=== PATIENT | male | born 1970 | race Two or more races ===

== ENCOUNTER → 2017-06-09 16:10 | Emergency (ER) | payer MEDICAID | END | disposition left against medical advice (07) | LOC: C.ER 16:10 | DX: Z02.89 Encounter for other administrative examinations (principal); R07.0 Pain in throat ==

== ENCOUNTER 2017-07-01 07:46 | Inpatient (IN) | payer MEDICAID ==
[2017-07-01] MEDS ORDERED: Sodium Chloride 0.9% 1,000 ML IV ONE (08:11)
[2017-07-01] MEDS ORDERED: Piperacillin/Tazobact 3.375 gm 100 ML IV STA (08:12)
[2017-07-01] MEDS ORDERED: Vancomycin 1 GM 1 GM/250 ML BAG IV STA (08:12)
[2017-07-01] MEDS ORDERED: Piperacillin/Tazobact 3.375 gm 100 ML IVPB ONE ×2 (08:32→15:13)
[2017-07-01] MEDS ORDERED: Sodium Chloride 0.9% 1,000 ML ONE (08:33)
[2017-07-01] MEDS ORDERED: Vancomycin 1 gm/NS 200 ml 1 GM/200 ML BAG IVPB STA (08:36)
[2017-07-01 08:37] LABS: BASO # 0.1 K/uL (0.0-0.2); BASO % 0.9 % (0.0-2.0); EOS # 0.2 K/uL (0.0-0.7); EOS % 1.9 % (0.0-4.0); HEMOGLOBIN 12.9 g/dL (12.0-18.0); LYMPH # 2.1 K/uL (1.0-4.3); LYMPH % 22.1 % (20.0-40.0); MEAN CELL VOLUME 91.2 fL (80.0-94.0); MEAN CORPUSCULAR HEMOGLOBIN 31.1 pg (27.0-31.0); MEAN CORPUSCULAR HGB CONC 34.1 g/dL (33.0-37.0); MEAN PLATELET VOLUME 7.2 fL (7.2-11.7); MONO # 0.5 K/uL (0.0-0.8); MONO % 5.3 % (0.0-10.0); NEUT # 6.5 K/uL (1.8-7.0); NEUT % 69.8 % (50.0-75.0); RBC 4.16 Mil/uL (4.40-5.90); RED CELL DISTRIBUTION WIDTH 15.3 % (11.5-14.5); WHITE BLOOD COUNT 9.3 K/uL (4.8-10.8)
[2017-07-01 08:40] LABS: INR 1.2; PROTHROMBIN TIME 13.8 SECONDS (9.7-12.2)
[2017-07-01 08:42] LABS: URINE BILIRUBIN NEGATIVE (NEGATIVE); URINE BLOOD NEGATIVE (NEGATIVE); URINE CLARITY Clear (Clear); URINE COLOR Amber (YELLOW); URINE GLUCOSE (UA) NORMAL (Normal); URINE LEUKOCYTE ESTERASE NEG Leu/uL (Negative); URINE PROTEIN NEGATIVE (NEGATIVE); URINE UROBILINOGEN NORMAL mg/dL (0.2-1.0)
[2017-07-01 08:50] LABS: ALB/GLOB RATIO 0.9 (1.0-2.1); ALBUMIN 3.8 g/dL (3.5-5.0); ALT/SGPT 36 U/L (21-72); AST/SGOT 49 U/L (17-59); BLOOD UREA NITROGEN 15 mg/dL (9-20); CALCIUM 8.7 mg/dl (8.6-10.4); GFR AFRICAN-AMERICAN > 60; GFR NON-AFRICAN AMERICAN > 60
--- NOTE | 2017-07-01 08:51 | RAD ---
HISTORY: SOB COMPARISON: Chest x-ray performed 07/01/17 TECHNIQUE: Chest, one view. FINDINGS: LUNGS: Patchy right lower lobe opacities may reflect pneumonia or atelectasis. Please note that chest x-ray has limited sensitivity for the detection of pulmonary masses. PLEURA: No significant pleural effusion identified. No definite pneumothorax . CARDIOVASCULAR: Heart size appears top normal. OSSEOUS STRUCTURES: No acute osseous abnormality identified. VISUALIZED UPPER ABDOMEN: Unremarkable. OTHER FINDINGS: None. IMPRESSION: Patchy right lower lobe opacities may reflect pneumonia or atelectasis. Correlate clinically.
[2017-07-01 08:56] LABS: BARBITURATES, UR NEGATIVE (NEGATIVE); BENZODIAZEPINES, UR NEGATIVE (NEGATIVE); PHENCYCLIDINE, UR NEGATIVE (NEGATIVE)
[2017-07-01] MEDS ORDERED: Iodixanol 320 mg/ml 150 ml Bottle IV ONE (08:56)
[2017-07-01 09:14] LABS: OPIATES, UR POSITIVE (NEGATIVE)
--- NOTE | 2017-07-01 09:15 | C.PDOC ---
History Of Present Illness Patient is a 46 y/o male who presents to the ED with a complaint of painful swelling to the right upper arm for over 1 week. Admits to being an IV drug abuser; patient is right-handed but shoots left handed into the right upper arm. Patient uses as many bags of heroin as possible, admitting last use was this morning. Admits to living in a homeless fdc. No other physical complaints at this time. Time Seen by Provider: 07/01/17 08:05 Chief Complaint (Nursing): Abnormal Skin Integrity History Per: Patient History/Exam Limitations: no limitations Onset/Duration Of Symptoms: Days (over 1 week) Current Symptoms Are (Timing): Still Present Quality Of Symptoms: Painful, Swollen Recent travel outside of the [place]: No Past Medical History Reviewed: Historical Data, Nursing Documentation, Vital Signs Vital Signs: Last Vital Signs Temp 98.4 F 07/01/17 08:01 Pulse 72 07/01/17 08:01 Resp 20 07/01/17 08:01 BP 114/69 07/01/17 08:01 Pulse Ox 99 07/01/17 11:01 - Medical History PMH: Hypothyroidism Surgical History: No Surg Hx Family History: States: No Known Family Hx - Social History Hx Tobacco Use: Yes (heavy smoker) Hx Alcohol Use: Yes Hx Substance Use: Yes Review Of Systems Musculoskeletal: Positive for: Arm Pain (painful swelling to right upper arm) Physical Exam - Physical Exam Appears: Other (disheveled, foul-smelling) Skin: Warm, Dry, Other (nonerythematous 5x5cm fluctuance to right upper arm to bicep area extending down to elbow) Head: Atraumatic, Normacephalic Eye(s): bilateral: Other (pinpoint pupils) Oral Mucosa: Moist Cardiovascular: Rhythm Regular Respiratory: Normal Breath Sounds, No Rales, No Rhonchi, No Wheezing Gastrointestinal/Abdominal: Soft, No Tenderness Pulses: Right Radial: Normal Neurological/Psych: Oriented x3, Normal Speech, Normal Cognition, Normal Motor ( good strength to right arm) ED Course And Treatment - Laboratory Results Result Diagrams: 07/01/17 08:27 07/01/17 08:27 Lab Interpretation: Normal ECG: Interpreted By Me ECG Rhythm: Sinus Bradycardia ECG Interpretation: Normal Rate From EC (baseline john from prior evals) O2 Sat by Pulse Oximetry: 99 Pulse Ox Interpretation: Normal - Radiology CXR: Interpreted by Me, Viewed By Me CXR Interpretation: Yes: Other (IMPRESSION: Patchy right lower lobe opacities may reflect pneumonia or atelectasis. Correlate clinically.) - CT Scan/US Right upper arm Other Rad Studies (CT/US): Interpreted By Me, Read By Radiologist CT/US Interpretation: . IMPRESSION: 1. Abscess noted along the anterior aspect of the right mid arm. Adjacent inflammatory change within the superficial soft tissues and enlargement of the biceps muscle indicates the presence of cellulitis and myositis. Ultrasound could be helpful in guiding abscess drainage if this is clinically relevant Reevaluation Time: 10:58 Reassessment Condition: Improved - Physician Consult Information Outcome Of Conversation: 0915: d/w Surgery- Dr. [facility], will consult. 1100: d/w Dr. Joaquín Jamil, Medicine Headrig Sawyer- ok to admit. Medical Decision Making Medical Decision Making: Blood work and CXR ordered. Toradol, vancomycin, and IV fluids administered. abscess, cellulitis, myositis @ site of IVDA/heroine Disposition Doctor Will See Patient In The: Hospital Counseled Patient/Family Regarding: Studies Performed, Diagnosis - Disposition Disposition: HOSPITALIZED Disposition Time: 11:00 Condition: GOOD Forms: [facility] ([place]) - Clinical Impression Clinical Impression: Abscess, Heroin abuse, Intravenous drug abuse, continuous - Scribe Statement The provider has reviewed the documentation as recorded by the Scribe Mandy Whitman All medical record entries made by the Scribe were at my direction and personally dictated by me. I have reviewed the chart and agree that the record accurately reflects my personal performance of the history, physical exam, medical decision making, and the department course for this patient. I have also personally directed, reviewed, and agree with the discharge instructions and disposition.
--- NOTE | 2017-07-01 10:48 | CT ---
EXAM: CT Right Upper Extremity With Intravenous Contrast EXAM DATE/TIME: Exam ordered 07/01/2017 8:16 AM CLINICAL HISTORY: 46 years old, male; Signs and symptoms; Swelling; Shoulder and upper limb; Right; Patient HX: Ivda; Additional info: R upper arm abscess (ivda). Best possible patient position. Unable to raise arm over head and keep in fov. TECHNIQUE: Axial computed tomography images of the right upper extremity with intravenous contrast. All CT scans at this facility use one or more dose reduction techniques, viz.: automated exposure control; ma/kV adjustment per patient size (including targeted exams where dose is matched to indication; i.e. head); or iterative reconstruction technique. Coronal and sagittal reformatted images were created and reviewed. CONTRAST: 150 mL of VISIPAQUE administered intravenously. COMPARISON: No relevant prior studies available. FINDINGS: Bones/joints: No osseous abnormalities are noted to suggest osteomyelitis of the humerus. No acute fracture. No dislocation. Soft tissues: There is edema noted within the subcutaneous fat of the right arm anteriorly. There is an abscess noted at approximately the level of the mid arm anteriorly. The abscess measures approximately 2.2 x 2.5 by 4.8 cm. There is edema noted of the underlying biceps muscle. Hypoventilatory changes noted in the dependent portion of the right lung. Lungs: Discoid atelectasis or scar is noted in the right middle lobe. IMPRESSION: 1. Abscess noted along the anterior aspect of the right mid arm. Adjacent inflammatory change within the superficial soft tissues and enlargement of the biceps muscle indicates the presence of cellulitis and myositis. Ultrasound could be helpful in guiding abscess drainage if this is clinically relevant Images were attached to this report and are available at [email or web address]
--- NOTE | 2017-07-01 14:56 | CP.PCM.CON ---
<Vincent Salcido - Last Filed: 07/01/17 15:06> History of Present Illness - History of Present Illness History of Present Illness: Surgery consult note. Dr. Friedman 46yo M with PMHx of IVDA and Hypothyroidism here for evaluation of right upper arm pain and swelling. Patient reports pain to the area for the past 1 week and progressively getting worse. Pain described as sharp, associated with redness and swelling. Denies any fevers or chills. Reports that he uses IV heroin and last injected at the right upper arm biceps area 3 days ago. He denies any chest pain or shortness of breath. No N/V/D. No abdominal pain. No urinary complaints. No sick contacts. PMHx: IVDA, Hypothyroidism PSHx: Denies Social Hx: Lives in a homeless prison. Admits to heavy tobacco use. Admits to ETOH use, does not quantify. Admits to IV heroin use. NKDA Review of Systems - Review of Systems All systems: reviewed and no additional remarkable complaints except - Constitutional Constitutional: absent: Chills, Fever - Cardiovascular Cardiovascular: absent: Chest Pain, Dyspnea - Respiratory Respiratory: absent: Dyspnea - Gastrointestinal Gastrointestinal: absent: Abdominal Pain, Diarrhea, Nausea, Vomiting - Genitourinary Genitourinary: absent: Dysuria - Musculoskeletal Additional comments: Right upper arm pain and swelling - Integumentary Integumentary: Swelling - Neurological Neurological: absent: Headaches Past Patient History - Past Medical History & Family History Past Medical History?: Yes Past Family History: Reviewed and not pertinent - Past Social History Smoking Status: Heavy Smoker > 10 Cigarettes Daily Alcohol: Other (Admits to ETOH use, does not quantify) Drugs: Other (Admits to IV heroin abuse) Home Situation {Lives}: Homeless (lives in homeless prison) - ENDOCRINE/METABOLIC Hx Hypothyroidism: Yes - PSYCHIATRIC Hx Substance Use: Yes - SURGICAL HISTORY Hx Surgeries: Yes Other/Comment: Right ankle - ANESTHESIA Hx Anesthesia: Yes Hx Anesthesia Reactions: No Meds Allergies/Adverse Reactions: Allergies Allergy/AdvReac Type Severity Reaction Status Date / Time No Known Allergies Allergy Verified 07/01/17 08:11 Physical Exam - Constitutional Appears: Non-toxic, No Acute Distress, Older Than Stated Age - Head Exam Head Exam: ATRAUMATIC, NORMAL INSPECTION, NORMOCEPHALIC - Eye Exam Eye Exam: EOMI, Normal appearance - ENT Exam ENT Exam: Mucous Membranes Moist - Respiratory Exam Respiratory Exam: NORMAL BREATHING PATTERN. absent: Accessory Muscle Use, Respiratory Distress - Cardiovascular Exam Cardiovascular Exam: RRR. absent: JVD - GI/Abdominal Exam GI & Abdominal Exam: Soft. absent: Distended, Firm, Guarding, Rigid, Tenderness - Extremities Exam Extremities exam: Positive for: full ROM. Negative for: calf tenderness Additional comments: right upper extremity swelling, erythema and induration at the biceps. No active drainage. Full range of motion noted. Tenderness to palpation of the right upper arm biceps area. Bilateral upper extremity track ulrich noted. - Neurological Exam Neurological exam: Alert, Oriented x3 - Psychiatric Exam Psychiatric exam: Normal Affect, Normal Mood Results - Vital Signs Recent Vital Signs: Last Vital Signs Temp 98.5 F 07/01/17 13:25 Pulse 68 07/01/17 13:25 Resp 18 07/01/17 13:25 BP 118/70 07/01/17 13:25 Pulse Ox 100 07/01/17 13:25 - Labs Result Diagrams: 07/01/17 08:27 07/01/17 08:27 Labs: Laboratory Results - last 24 hr 07/01/17 07/01/17 07/01/17 08:27 08:27 08:27 WBC 9.3 RBC 4.16 L Hgb 12.9 Hct 37.9 MCV 91.2 MCH 31.1 H MCHC 34.1 RDW 15.3 H Plt Count 300 MPV 7.2 Neut % (Auto) 69.8 Lymph % (Auto) 22.1 [place] % (Auto) 5.3 Eos % (Auto) 1.9 Baso % (Auto) 0.9 Neut # (Auto) 6.5 Lymph # (Auto) 2.1 [place] # (Auto) 0.5 Eos # (Auto) 0.2 Baso # (Auto) 0.1 PT 13.8 H INR 1.2 APTT 26 Sodium Potassium Chloride Carbon Dioxide Anion Gap BUN Creatinine Est GFR ( Amer) Est GFR (Non-Af Amer) Random Glucose Calcium Total Bilirubin AST ALT Alkaline Phosphatase Troponin I Total Protein Albumin Globulin Albumin/Globulin Ratio Urine Color [place] Urine Clarity Clear Urine pH 5.0 Ur Specific [place] 1.023 Urine Protein Negative Urine Glucose (UA) Normal Urine Ketones Negative Urine Blood Negative Urine Nitrate Negative Urine Bilirubin Negative Urine Urobilinogen Normal Ur Leukocyte Esterase Neg Urine WBC (Auto) < 1 Urine RBC (Auto) 1 Urine Opiates Screen Urine Methadone Screen Ur Barbiturates Screen Ur Phencyclidine Scrn Ur Amphetamines Screen U Benzodiazepines Scrn U Oth Cocaine Metabols U Cannabinoids Screen Alcohol, Quantitative 07/01/17 07/01/17 08:27 08:27 WBC RBC Hgb Hct MCV MCH MCHC RDW Plt Count MPV Neut % (Auto) Lymph % (Auto) [place] % (Auto) Eos % (Auto) Baso % (Auto) Neut # (Auto) Lymph # (Auto) [place] # (Auto) Eos # (Auto) Baso # (Auto) PT INR APTT Sodium 139 Potassium 4.1 Chloride 99 Carbon Dioxide 27 Anion Gap 18 BUN 15 Creatinine 1.0 Est GFR ( Amer) > 60 Est GFR (Non-Af Amer) > 60 Random Glucose 129 H Calcium 8.7 Total Bilirubin 0.6 AST 49 ALT 36 Alkaline Phosphatase 69 Troponin I < 0.0120 Total Protein 7.8 Albumin 3.8 Globulin 4.0 H Albumin/Globulin Ratio 0.9 L Urine Color Urine Clarity Urine pH Ur Specific [place] Urine Protein Urine Glucose (UA) Urine Ketones Urine Blood Urine Nitrate Urine Bilirubin Urine Urobilinogen Ur Leukocyte Esterase Urine WBC (Auto) Urine RBC (Auto) Urine Opiates Screen Positive H Urine Methadone Screen Negative Ur Barbiturates Screen Negative Ur Phencyclidine Scrn Negative Ur Amphetamines Screen Negative U Benzodiazepines Scrn Negative U Oth Cocaine Metabols Negative U Cannabinoids Screen Negative Alcohol, Quantitative < 10 Assessment & Plan - Assessment and Plan (Free Text) Assessment: 46yo M with hx of IVDA here for right upper arm abscess - CT upper extremity noted. Possible involvement into biceps muscle belly. Fluid collection approximately 2.5cm x 5cm Plan: - Warm compresses to the affected area - IV abx as per ID - Possible OR Monday for I&D - NPO past mn Monday - Continue diet as tolerated in the meantime Further recs as per Dr. Idalia Salcido PGY1 surgery pager: [phone] <Frankie Friedman - Last Filed: 07/05/17 20:21> Results - Vital Signs Recent Vital Signs: Last Vital Signs Temp 97.8 F 07/03/17 16:00 Pulse 62 07/03/17 16:00 Resp 20 07/03/17 16:00 BP 95/58 L 07/03/17 16:00 Pulse Ox 98 07/03/17 16:00 - Labs Result Diagrams: 07/01/17 08:27 07/01/17 08:27 Attending/Attestation - Attestation I have personally seen and examined this patient.: Yes I have fully participated in the care of the patient.: Yes I have reviewed all pertinent clinical information: Yes Notes (Text): Pt was seen and examined at bedside Agree with above note and assessment Pt with IV drug abuse and Right upper arm pain Right arm tenderness with cellulitis Labs and radiology reviewed Ass: R arm cellulitis with possible abscess Plan: Conservative management at present NPO, IVF IV antibiotics ID consult Arm elevation Plan d.w pt in detail Risk and benefit explained in detail.
[2017-07-01] MEDS: Piperacillin/Tazobact 3.375 GM in Sodium Chloride 100 ML IVPB SCH ×2 (15:08→22:00)
--- NOTE | 2017-07-01 20:41 | CP.PCM.HP ---
Present on Admission - Present on Admission Any Indicators Present on Admission: No Past Patient History - Past Medical History & Family History Past Medical History?: Yes Past Family History: Reviewed and not pertinent - Past Social History Smoking Status: Heavy Smoker > 10 Cigarettes Daily Alcohol: Other (Admits to ETOH use, does not quantify) Drugs: Other (Admits to IV heroin abuse) Home Situation {Lives}: Homeless (lives in homeless senior care) - ENDOCRINE/METABOLIC Hx Hypothyroidism: Yes - PSYCHIATRIC Hx Substance Use: Yes - SURGICAL HISTORY Hx Surgeries: Yes Other/Comment: Right ankle - ANESTHESIA Hx Anesthesia: Yes Hx Anesthesia Reactions: No Meds Allergies/Adverse Reactions: Allergies Allergy/AdvReac Type Severity Reaction Status Date / Time No Known Allergies Allergy Verified 07/01/17 08:11 Results - Vital Signs Recent Vital Signs: Last Vital Signs Temp 98.1 F 07/01/17 18:36 Pulse 56 L 07/01/17 18:36 Resp 16 07/01/17 18:36 BP 134/72 07/01/17 18:36 Pulse Ox 98 07/01/17 18:36 - Labs Result Diagrams: 07/01/17 08:27 07/01/17 08:27 Labs: Laboratory Results - last 24 hr 07/01/17 07/01/17 07/01/17 08:27 08:27 08:27 WBC 9.3 RBC 4.16 L Hgb 12.9 Hct 37.9 MCV 91.2 MCH 31.1 H MCHC 34.1 RDW 15.3 H Plt Count 300 MPV 7.2 Neut % (Auto) 69.8 Lymph % (Auto) 22.1 [place] % (Auto) 5.3 Eos % (Auto) 1.9 Baso % (Auto) 0.9 Neut # (Auto) 6.5 Lymph # (Auto) 2.1 [place] # (Auto) 0.5 Eos # (Auto) 0.2 Baso # (Auto) 0.1 PT 13.8 H INR 1.2 APTT 26 Sodium Potassium Chloride Carbon Dioxide Anion Gap BUN Creatinine Est GFR ( Amer) Est GFR (Non-Af Amer) Random Glucose Calcium Total Bilirubin AST ALT Alkaline Phosphatase Troponin I Total Protein Albumin Globulin Albumin/Globulin Ratio Urine Color [place] Urine Clarity Clear Urine pH 5.0 Ur Specific [place] 1.023 Urine Protein Negative Urine Glucose (UA) Normal Urine Ketones Negative Urine Blood Negative Urine Nitrate Negative Urine Bilirubin Negative Urine Urobilinogen Normal Ur Leukocyte Esterase Neg Urine WBC (Auto) < 1 Urine RBC (Auto) 1 Urine Opiates Screen Urine Methadone Screen Ur Barbiturates Screen Ur Phencyclidine Scrn Ur Amphetamines Screen U Benzodiazepines Scrn U Oth Cocaine Metabols U Cannabinoids Screen Alcohol, Quantitative 07/01/17 07/01/17 08:27 08:27 WBC RBC Hgb Hct MCV MCH MCHC RDW Plt Count MPV Neut % (Auto) Lymph % (Auto) [place] % (Auto) Eos % (Auto) Baso % (Auto) Neut # (Auto) Lymph # (Auto) [place] # (Auto) Eos # (Auto) Baso # (Auto) PT INR APTT Sodium 139 Potassium 4.1 Chloride 99 Carbon Dioxide 27 Anion Gap 18 BUN 15 Creatinine 1.0 Est GFR ( Amer) > 60 Est GFR (Non-Af Amer) > 60 Random Glucose 129 H Calcium 8.7 Total Bilirubin 0.6 AST 49 ALT 36 Alkaline Phosphatase 69 Troponin I < 0.0120 Total Protein 7.8 Albumin 3.8 Globulin 4.0 H Albumin/Globulin Ratio 0.9 L Urine Color Urine Clarity Urine pH Ur Specific [place] Urine Protein Urine Glucose (UA) Urine Ketones Urine Blood Urine Nitrate Urine Bilirubin Urine Urobilinogen Ur Leukocyte Esterase Urine WBC (Auto) Urine RBC (Auto) Urine Opiates Screen Positive H Urine Methadone Screen Negative Ur Barbiturates Screen Negative Ur Phencyclidine Scrn Negative Ur Amphetamines Screen Negative U Benzodiazepines Scrn Negative U Oth Cocaine Metabols Negative U Cannabinoids Screen Negative Alcohol, Quantitative < 10 Assessment & Plan - Assessment and Plan (Free Text) Plan: protonix Lovenox ID consult IV Zosyn IV fluid IV Toradol IV vancomycin Surgical consult Medication as ordered
[2017-07-01] MEDS ORDERED: Pneumococcal 23-Valent Vaccine IM ONE (22:28)
[2017-07-01] MEDS ORDERED: Influenza Vaccine 60 mcg/0.5 mL SYR (4YR UP) IM ONE (22:29)
[2017-07-02] MEDS: Piperacillin/Tazobact 3.375 GM in Sodium Chloride 100 ML IVPB SCH ×4 (03:17→20:18)
--- NOTE | 2017-07-02 09:02 | CP.PCM.PN ---
<Coleman Salcidonay - Last Filed: 07/02/17 08:59> Subjective - Date & Time of Evaluation Date of Evaluation: 07/02/17 Time of Evaluation: 07:00 - Subjective Subjective: Surgery progress note. Dr. Friedman Pt seen and examined at bedside. No acute events overnight. No N/V/D. No new complaints. No F/C. Pain tolerable. Objective - Vital Signs/Intake and Output Vital Signs (last 24 hours): Temp Pulse Resp BP Pulse Ox 98.1 F 60 20 109/64 98 07/02/17 08:34 07/02/17 08:34 07/02/17 08:34 07/02/17 08:34 07/02/17 08:34 Intake and Output: 07/02/17 07/02/17 06:59 18:59 Intake Total Balance - Medications Medications: Current Medications Acetaminophen (Tylenol 325mg Tab) 650 mg PO Q6 PRN PRN Reason: Pain, Mild (1-3) Last Admin: 07/02/17 01:08 Dose: 650 mg Enoxaparin Sodium (Lovenox) 40 mg SC DAILY CHRISTOPHER Piperacillin Sod/Tazobactam (Sod 3.375 gm/ Sodium Chloride) 100 mls @ 200 mls/ hr IVPB Q6H CHRISTOPHER PRN Reason: Protocol Last Admin: 07/02/17 03:17 Dose: 200 mls/hr Vancomycin HCl 1,000 mg/ (Sodium Chloride) 200 mls @ 166.6 mls/hr IVPB Q12H CHRISTOPHER PRN Reason: Protocol Last Admin: 07/01/17 22:47 Dose: 166.6 mls/hr Ketorolac Tromethamine (Toradol) 15 mg IVP Q8 PRN PRN Reason: Pain, severe (8-10) Last Admin: 07/01/17 20:07 Dose: 15 mg Levothyroxine Sodium (Synthroid) 150 mcg PO DAILY CHRISTOPHER Pantoprazole Sodium (Protonix Ec Tab) 40 mg PO DAILY CHRISTOPHER - Labs Labs: 07/01/17 08:27 07/01/17 08:27 PT 13.8 SECONDS (9.7-12.2) H 07/01/17 08:27 INR 1.2 07/01/17 08:27 APTT 26 SECONDS (21-34) 07/01/17 08:27 - Constitutional Appears: Non-toxic, No Acute Distress - Head Exam Head Exam: ATRAUMATIC, NORMAL INSPECTION, NORMOCEPHALIC - Eye Exam Eye Exam: EOMI, Normal appearance - ENT Exam ENT Exam: Mucous Membranes Moist - Respiratory Exam Respiratory Exam: NORMAL BREATHING PATTERN. absent: Accessory Muscle Use, Respiratory Distress - Cardiovascular Exam Cardiovascular Exam: RRR. absent: JVD - GI/Abdominal Exam GI & Abdominal Exam: Soft. absent: Distended, Guarding, Rigid, Tenderness, Rebound - Extremities Exam Additional comments: Right upper extremity: diffuse area of induration and erythema over bicep area. mild fluctuance. No active drainage. - Neurological Exam Neurological Exam: Alert, Awake, Oriented x3 Assessment and Plan - Assessment and Plan (Free Text) Assessment: 46yo M with Right upper arm abscess secondary to IVDA Plan: - To OR 07/03/17 for I&D - Warm compresses to the affected area - IV abx as per ID - NPO past mn Further recs as per Dr. Idalia Salcido PGY1 surgery pager: [phone] <Frankie Friedman B - Last Filed: 07/05/17 20:22> Objective - Vital Signs/Intake and Output Vital Signs (last 24 hours): Temp Pulse Resp BP Pulse Ox 97.8 F 62 20 95/58 L 98 07/03/17 16:00 07/03/17 16:00 07/03/17 16:00 07/03/17 16:00 07/03/17 16:00 - Labs Labs: 07/01/17 08:27 07/01/17 08:27 PT 13.8 SECONDS (9.7-12.2) H 07/01/17 08:27 INR 1.2 07/01/17 08:27 APTT 26 SECONDS (21-34) 07/01/17 08:27 Attending/Attestation - Attestation I have personally seen and examined this patient.: Yes I have fully participated in the care of the patient.: Yes I have reviewed all pertinent clinical information, including history, physical exam and plan: Yes Notes (Text): Pt was seen and examined at bedside Agree with above note and assessment Pt is improving clinically IV antibiotics c.w current mx Plan d.w pt in detail Risk and benefit explained in detail.
[2017-07-02] MEDS: Pantoprazole 40 mg EC Tab PO SCH (09:47)
[2017-07-02] MEDS ORDERED: Enoxaparin 40 mg Syringe SC SCH (10:00)
[2017-07-02] MEDS: Levothyroxine 150 MCG TAB PO SCH (10:55)
--- NOTE | 2017-07-02 15:25 | CP.PCM.CON ---
History of Present Illness - History of Present Illness History of Present Illness: 46yo M with PMHx of IVDA and Hypothyroidism here for evaluation of right upper arm pain and swelling. Reports that he uses IV heroin and last injected at the right upper arm biceps area 3 days ago. He denies any chest pain or shortness of breath. No N/V/D. No abdominal pain. No urinary complaints. No sick contacts. ID consulted for antibiotic management PMHx: IVDA, Hypothyroidism PSHx: Denies Social Hx: Lives in a homeless jail. Admits to heavy tobacco use. Admits to ETOH use, does not quantify. Admits to IV heroin use. NKDA Review of Systems - Review of Systems All systems: reviewed and no additional remarkable complaints except - Constitutional Constitutional: absent: Chills, Fever - Cardiovascular Cardiovascular: absent: Chest Pain, Dyspnea - Respiratory Respiratory: absent: Dyspnea - Gastrointestinal Gastrointestinal: absent: Abdominal Pain, Diarrhea, Nausea, Vomiting - Genitourinary Genitourinary: absent: Dysuria - Musculoskeletal Additional comments: Right upper arm pain and swelling - Integumentary Integumentary: Swelling - Neurological Neurological: absent: Headaches Past Patient History - Past Medical History & Family History Past Medical History?: Yes Past Family History: Reviewed and not pertinent - Past Social History Smoking Status: Heavy Smoker > 10 Cigarettes Daily Alcohol: Other (Admits to ETOH use, does not quantify) Drugs: Other (Admits to IV heroin abuse) Home Situation {Lives}: Homeless (lives in homeless jail) - ENDOCRINE/METABOLIC Hx Hypothyroidism: Yes - PSYCHIATRIC Hx Substance Use: Yes Review of Systems - Constitutional Constitutional: As Per HPI. absent: Anorexia, Chills, Daytime Sleepiness, Excessive Sweating, Fatigue, Fever, Frequent Falls, Headache, Increased Appetite , Lethargy, Malaise, Night Sweats, Snoring, Sleep Apnea, Weight Gain, Weight Loss, Weakness, Other Past Patient History - Past Medical History & Family History Past Medical History?: Yes Past Family History: Reviewed and not pertinent - Past Social History Smoking Status: Heavy Smoker > 10 Cigarettes Daily Alcohol: Other (Admits to ETOH use, does not quantify) Drugs: Other (Admits to IV heroin abuse) Home Situation {Lives}: Homeless (lives in homeless jail) - ENDOCRINE/METABOLIC Hx Hypothyroidism: Yes - MUSCULOSKELETAL/RHEUMATOLOGICAL Hx Falls: No - PSYCHIATRIC Hx Substance Use: Yes - SURGICAL HISTORY Hx Surgeries: Yes Other/Comment: Right ankle - ANESTHESIA Hx Anesthesia: Yes Hx Anesthesia Reactions: No Meds Allergies/Adverse Reactions: Allergies Allergy/AdvReac Type Severity Reaction Status Date / Time No Known Allergies Allergy Verified 07/01/17 08:11 - Medications Medications: Current Medications Acetaminophen (Tylenol 325mg Tab) 650 mg PO Q6 PRN PRN Reason: Pain, Mild (1-3) Last Admin: 07/02/17 01:08 Dose: 650 mg Enoxaparin Sodium (Lovenox) 40 mg SC DAILY [facility] Last Admin: 07/02/17 09:46 Dose: 40 mg Piperacillin Sod/Tazobactam (Sod 3.375 gm/ Sodium Chloride) 100 mls @ 200 mls/ hr IVPB Q6H CHRISTOPHER PRN Reason: Protocol Last Admin: 07/02/17 12:00 Dose: 200 mls/hr Vancomycin HCl 1,000 mg/ (Sodium Chloride) 200 mls @ 166.6 mls/hr IVPB Q12H CHRISTOPHER PRN Reason: Protocol Last Admin: 07/02/17 10:51 Dose: 166.6 mls/hr Ketorolac Tromethamine (Toradol) 15 mg IVP Q8 PRN PRN Reason: Pain, severe (8-10) Last Admin: 07/02/17 10:01 Dose: 15 mg Levothyroxine Sodium (Synthroid) 150 mcg PO DAILY [facility] Last Admin: 07/02/17 10:55 Dose: 150 mcg Pantoprazole Sodium (Protonix Ec Tab) 40 mg PO DAILY [facility] Last Admin: 07/02/17 09:47 Dose: 40 mg Physical Exam - Constitutional Appears: Chronically Ill - Head Exam Head Exam: ATRAUMATIC, NORMOCEPHALIC - Eye Exam Eye Exam: PERRL. absent: Scleral icterus - ENT Exam ENT Exam: Mucous Membranes Dry, Normal External Ear Exam - Neck Exam Neck exam: Negative for: Lymphadenopathy - Respiratory Exam Respiratory Exam: Decreased Breath Sounds - Cardiovascular Exam Cardiovascular Exam: REGULAR RHYTHM, +S1, +S2 - GI/Abdominal Exam GI & Abdominal Exam: Diminished Bowel Sounds - Rectal Exam Rectal Exam: Deferred - Exam Exam: NORMAL INSPECTION - Extremities Exam Extremities exam: Positive for: tenderness, pedal pulses present. Negative for : calf tenderness, pedal edema Additional comments: swelling RUE - Back Exam Back exam: NORMAL INSPECTION. absent: CVA tenderness (L), CVA tenderness (R) - Neurological Exam Neurological exam: Alert, CN II-XII Intact, Oriented x3, Reflexes Normal - Psychiatric Exam Psychiatric exam: Normal Mood - Skin Skin Exam: Dry Results - Vital Signs Recent Vital Signs: Last Vital Signs Temp 98.1 F 07/02/17 08:34 Pulse 60 07/02/17 08:34 Resp 20 07/02/17 08:34 BP 109/64 07/02/17 08:34 Pulse Ox 98 07/02/17 08:34 - Labs Result Diagrams: 07/01/17 08:27 07/01/17 08:27 Assessment & Plan - Assessment and Plan (Free Text) Assessment: await cultures may need I and D need detox services and Hep?HIV screening
[2017-07-02] MEDS ORDERED: Tetanus/Diphtheria Toxoids 0.5 ml Syringe IM ONE (15:26)
--- NOTE | 2017-07-02 16:02 | CP.PCM.PN ---
Subjective - Date & Time of Evaluation Date of Evaluation: 07/02/17 Time of Evaluation: 08:00 - Subjective Subjective: clinically same Objective - Vital Signs/Intake and Output Vital Signs (last 24 hours): Temp Pulse Resp BP Pulse Ox 98.1 F 60 20 109/64 98 07/02/17 08:34 07/02/17 08:34 07/02/17 08:34 07/02/17 08:34 07/02/17 08:34 Intake and Output: 07/02/17 07/02/17 06:59 18:59 Intake Total Balance - Medications Medications: Current Medications Acetaminophen (Tylenol 325mg Tab) 650 mg PO Q6 PRN PRN Reason: Pain, Mild (1-3) Last Admin: 07/02/17 01:08 Dose: 650 mg Enoxaparin Sodium (Lovenox) 40 mg SC DAILY [facility] Last Admin: 07/02/17 09:46 Dose: 40 mg Piperacillin Sod/Tazobactam (Sod 3.375 gm/ Sodium Chloride) 100 mls @ 200 mls/ hr IVPB Q6H CHRISTOPHER PRN Reason: Protocol Last Admin: 07/02/17 12:00 Dose: 200 mls/hr Vancomycin HCl 1,000 mg/ (Sodium Chloride) 200 mls @ 166.6 mls/hr IVPB Q12H CHRISTOPHER PRN Reason: Protocol Last Admin: 07/02/17 10:51 Dose: 166.6 mls/hr Ketorolac Tromethamine (Toradol) 15 mg IVP Q8 PRN PRN Reason: Pain, severe (8-10) Last Admin: 07/02/17 10:01 Dose: 15 mg Levothyroxine Sodium (Synthroid) 150 mcg PO DAILY [facility] Last Admin: 07/02/17 10:55 Dose: 150 mcg Pantoprazole Sodium (Protonix Ec Tab) 40 mg PO DAILY [facility] Last Admin: 07/02/17 09:47 Dose: 40 mg - Labs Labs: 07/01/17 08:27 07/01/17 08:27 PT 13.8 SECONDS (9.7-12.2) H 07/01/17 08:27 INR 1.2 07/01/17 08:27 APTT 26 SECONDS (21-34) 07/01/17 08:27 - Constitutional Appears: Well - Head Exam Head Exam: ATRAUMATIC, NORMAL INSPECTION, NORMOCEPHALIC - Eye Exam Eye Exam: EOMI, Normal appearance, PERRL Pupil Exam: NORMAL ACCOMODATION, PERRL - ENT Exam ENT Exam: Mucous Membranes Moist, Normal Exam - Neck Exam Neck Exam: Full ROM, Normal Inspection. absent: Lymphadenopathy - Respiratory Exam Respiratory Exam: Decreased Breath Sounds - Cardiovascular Exam Cardiovascular Exam: REGULAR RHYTHM, +S1, +S2 - GI/Abdominal Exam GI & Abdominal Exam: Soft, Diminished Bowel Sounds - Rectal Exam Rectal Exam: Deferred
[2017-07-03] MEDS: Piperacillin/Tazobact 3.375 GM in Sodium Chloride 100 ML IVPB SCH ×3 (02:03→14:52)
[2017-07-03 07:59] LABS: VANCOMYCIN TROUGH 12.3 ug/mL (5.0-10.0)
[2017-07-03 08:08] LABS: HEPATITIS B SURFACE AG Negative (NEGATIVE)
[2017-07-03 08:13] LABS: HEPATITIS A IGM NEGATIVE (NEGATIVE); HEPATITIS B CORE AB NEGATIVE (NEGATIVE)
[2017-07-03 08:18] LABS: HIV 1&2 ANTIBODY NEGATIVE (NEGATIVE)
[2017-07-03 09:38] LABS: HEPATITIS C ANTIBODY REACTIVE (NEGATIVE)
[2017-07-03] MEDS: Pantoprazole 40 mg EC Tab PO SCH (09:53)
[2017-07-03] MEDS: Levothyroxine 150 MCG TAB PO SCH (09:53)
[2017-07-03] MEDS ORDERED: Bupivacaine HCl 0.25% PF (10 ml) Inj ONE (11:50)
[2017-07-03] MEDS ORDERED: Lidocaine/Epinephrine 1% 1:100000 10 ML IJ ONE (11:50)
--- NOTE | 2017-07-03 11:56 | CP.PCM.PN ---
Subjective - Date & Time of Evaluation Date of Evaluation: 07/03/17 Time of Evaluation: 10:00 - Subjective Subjective: swelling persists possible I and D Objective - Vital Signs/Intake and Output Vital Signs (last 24 hours): Temp Pulse Resp BP Pulse Ox 97.9 F 56 L 20 120/74 97 07/03/17 08:03 07/03/17 08:03 07/03/17 08:03 07/03/17 08:03 07/03/17 08:03 Intake and Output: 07/03/17 07/03/17 06:59 18:59 Intake Total 750 Balance 750 - Medications Medications: Current Medications Acetaminophen (Tylenol 325mg Tab) 650 mg PO Q6 PRN PRN Reason: Pain, Mild (1-3) Last Admin: 07/02/17 22:04 Dose: 650 mg Chlordiazepoxide (Librium) 25 mg PO Q8 PRN PRN Reason: Withdrawl Stop: 07/08/17 22:01 Last Admin: 07/02/17 22:04 Dose: 25 mg Enoxaparin Sodium (Lovenox) 40 mg SC DAILY [facility] Last Admin: 07/02/17 09:46 Dose: 40 mg Piperacillin Sod/Tazobactam (Sod 3.375 gm/ Sodium Chloride) 100 mls @ 200 mls/ hr IVPB Q6H CHRISTOPHER PRN Reason: Protocol Last Admin: 07/03/17 09:54 Dose: Not Given Vancomycin HCl 1,000 mg/ (Sodium Chloride) 200 mls @ 166.6 mls/hr IVPB Q12H CHRISTOPHER PRN Reason: Protocol Last Admin: 07/02/17 22:03 Dose: 166.6 mls/hr Ketorolac Tromethamine (Toradol) 15 mg IVP Q8 PRN PRN Reason: Pain, severe (8-10) Last Admin: 07/02/17 22:04 Dose: 15 mg Levothyroxine Sodium (Synthroid) 150 mcg PO DAILY [facility] Last Admin: 07/03/17 09:53 Dose: Not Given Pantoprazole Sodium (Protonix Ec Tab) 40 mg PO DAILY [facility] Last Admin: 07/03/17 09:53 Dose: Not Given - Labs Labs: 07/01/17 08:27 07/01/17 08:27 PT 13.8 SECONDS (9.7-12.2) H 07/01/17 08:27 INR 1.2 07/01/17 08:27 APTT 26 SECONDS (21-34) 07/01/17 08:27 - Constitutional Appears: Non-toxic, Chronically Ill - Head Exam Head Exam: NORMOCEPHALIC - Eye Exam Eye Exam: PERRL. absent: Scleral icterus - ENT Exam ENT Exam: Mucous Membranes Dry - Neck Exam Neck Exam: absent: Lymphadenopathy - Respiratory Exam Respiratory Exam: Decreased Breath Sounds - Cardiovascular Exam Cardiovascular Exam: REGULAR RHYTHM - GI/Abdominal Exam GI & Abdominal Exam: Distended, Soft Assessment and Plan - Assessment and Plan (Free Text) Plan: right arm abscess for I and D
[2017-07-03] MEDS ORDERED: Lactated Ringer's 1,000 ML IV ONE ×2 (12:33→13:00)
[2017-07-03] MEDS ORDERED: Propofol 10 mg/ml Inj (20 ML) ONE (12:39)
[2017-07-03] MEDS ORDERED: HYDROmorphone 0.5 mg/0.5 ml ISec IVP PRN (13:01)
[2017-07-03] MEDS ORDERED: HYDROmorphone 0.5 mg/0.5 ml ISec ONE (13:06)
--- NOTE | 2017-07-03 13:15 | CP.PCM.PN ---
Subjective - Date & Time of Evaluation Date of Evaluation: 07/03/17 Time of Evaluation: 08:10 - Subjective Subjective: clinically same Objective - Vital Signs/Intake and Output Vital Signs (last 24 hours): Temp Pulse Resp BP Pulse Ox 97.9 F 56 L 20 120/74 97 07/03/17 08:03 07/03/17 08:03 07/03/17 08:03 07/03/17 08:03 07/03/17 08:03 Intake and Output: 07/03/17 07/03/17 06:59 18:59 Intake Total 750 Balance 750 - Medications Medications: Current Medications Acetaminophen (Tylenol 325mg Tab) 650 mg PO Q6 PRN PRN Reason: Pain, Mild (1-3) Last Admin: 07/02/17 22:04 Dose: 650 mg Chlordiazepoxide (Librium) 25 mg PO Q8 PRN PRN Reason: Withdrawl Stop: 07/08/17 22:01 Last Admin: 07/02/17 22:04 Dose: 25 mg Enoxaparin Sodium (Lovenox) 40 mg SC DAILY [facility] Last Admin: 07/02/17 09:46 Dose: 40 mg Hydromorphone HCl (Dilaudid) 0.5 mg IVP Q5M PRN PRN Reason: Pain, severe (8-10) Stop: 07/03/17 15:01 Piperacillin Sod/Tazobactam (Sod 3.375 gm/ Sodium Chloride) 100 mls @ 200 mls/ hr IVPB Q6H CHRISTOPHER PRN Reason: Protocol Last Admin: 07/03/17 09:54 Dose: Not Given Vancomycin HCl 1,000 mg/ (Sodium Chloride) 200 mls @ 166.6 mls/hr IVPB Q12H CHRISTOPHER PRN Reason: Protocol Last Admin: 07/02/17 22:03 Dose: 166.6 mls/hr Ketorolac Tromethamine (Toradol) 15 mg IVP Q8 PRN PRN Reason: Pain, severe (8-10) Last Admin: 07/02/17 22:04 Dose: 15 mg Levothyroxine Sodium (Synthroid) 150 mcg PO DAILY [facility] Last Admin: 07/03/17 09:53 Dose: Not Given Pantoprazole Sodium (Protonix Ec Tab) 40 mg PO DAILY [facility] Last Admin: 07/03/17 09:53 Dose: Not Given - Labs Labs: 07/01/17 08:27 03 08:27 PT 13.8 SECONDS (9.7-12.2) H 07/01/17 08:27 INR 1.2 07/01/17 08:27 APTT 26 SECONDS (21-34) 07/01/17 08:27 - Constitutional Appears: Well - Head Exam Head Exam: ATRAUMATIC, NORMAL INSPECTION, NORMOCEPHALIC - Eye Exam Eye Exam: EOMI, Normal appearance, PERRL Pupil Exam: NORMAL ACCOMODATION, PERRL - ENT Exam ENT Exam: Mucous Membranes Moist, Normal Exam - Neck Exam Neck Exam: Full ROM, Normal Inspection. absent: Lymphadenopathy - Respiratory Exam Respiratory Exam: Decreased Breath Sounds - Cardiovascular Exam Cardiovascular Exam: REGULAR RHYTHM, +S1, +S2 - GI/Abdominal Exam GI & Abdominal Exam: Soft, Diminished Bowel Sounds - Rectal Exam Rectal Exam: Deferred Assessment and Plan - Assessment and Plan (Free Text) Plan: Status post IND and Patient has a pain Change it to diluted Continue continue IV antibiotic IV Zosyn IV vancomycin Continue same Psych consult We will transfer the detox once cleared medically
[2017-07-03] MEDS ORDERED: Oxycodone/Acetaminophen 5/325 mg Tab PO PRN (15:19)
--- NOTE | 2017-07-03 15:28 | PCM.SURG1 ---
Surgeon's Initial Post Op Note - Surgeon's Notes Surgeon: Dr. Friedman Business Operations Specialist: Champ [id number] Type of Anesthesia: Local Pre-Operative Diagnosis: Right Upper Arm Abscess Operative Findings: see operative report Post-Operative Diagnosis: Same Operation Performed: Right Upper Arm I&D Specimen/Specimens Removed: Wound Culture x2 Estimated Blood Loss: EBL {In ML}: 10 Blood Products Given: N/A Drains Used: No Drains Post-Op Condition: Good Date of Surgery/Procedure: 07/03/17 Time of Surgery/Procedure: 15:28
[2017-07-03 17:21] VITALS: BP 95/58; PULSE 62; RESP 20; TEMP 97.8; O2SAT 98
--- NOTE | 2017-07-03 20:26 | CARD ---
APPROVED REPORT EKG Measurement Heart [id number] ID [id number] <Conclusion> Sinus bradycardia with sinus arrhythmia Possible old septal [place] Abnormal l ECG
--- NOTE | 2017-07-04 04:08 | OP ---
PROCEDURE DATE: 07/03/2017 PREOPERATIVE DIAGNOSES: 1. Right arm intramuscular abscess, biceps muscles. 2. IV drug abuse. POSTOPERATIVE DIAGNOSES: 1. Right arm intramuscular abscess biceps muscles. 2. IV drug abuse. PROCEDURE DONE: 1. Incision and drainage of right arm intramuscular deep abscess. 2. Excisional debridement of the wound and abscess cavity. SURGEON: The procedure was done by ma Dr. Friedman. MUD ANALYSIS WELL LOGGING CAPTAIN: None. TYPE OF ANESTHESIA: Local anesthesia plus sedation. ESTIMATED BLOOD LOSS: Around 10 mL. DRAIN: None. PATHOLOGY: 1. The pus was sent for culture and sensitivities. 2. Debrided tissue was sent for the pathology. COMPLICATIONS: None. INTRAOPERATIVE FINDINGS: The patient had approximately 3 x 2 cm deep intramuscular abscess in the biceps of the right arm. DESCRIPTION OF PROCEDURE: On intraoperative steps, this 46-year-old male was diagnosed with right arm intramuscular abscess and the patient is IV drug user. and the patient was initially treated with IV antibiotics for cellulitis, and after that, patient was consented for incision and drainage, brought to the OR, placed supine on the operating table. After induction of the anesthesia, the right arm was prepped and draped in usual sterile fashion, and a vertical incision was made, after incising skin and subcutaneous tissue, the abscess cavity was entered and the pus was collected for the culture and sensitivity. The abscess cavity was completely drained. The wound was debrided. The necrotic tissue was sent for the pathology and hemostasis was achieved. The wound was packed with iodoform packing and dry sterile dressing was applied. The patient tolerated the procedure well. Count of the instrument and gauze was correct. There was no apparent complication. The patient was reversed from sedation. Sent to the postanesthesia care unit in stable condition. Frankie Friedman MD [id number]
== END 2017-07-03 21:22 | disposition left against medical advice (07) | DRG 226 ==
LOC: C.ER 07:46 → C.9E 18:28 → C.3T 19:08
PROVIDERS: ADMIT Internal Medicine Nephrology; ATTEND Internal Medicine Nephrology
PROC: 0KB70ZZ Excision of Right Upper Arm Muscle, Open Approach (ICD-10-PCS; 2017-07-03)
PROC: 0K970ZX Drainage of Right Upper Arm Muscle, Open Approach, Diagnostic (ICD-10-PCS; principal; 2017-07-03 11:30)
DX: M60.021 Infective myositis, right upper arm (principal); F11.20 Opioid dependence, uncomplicated; E03.9 Hypothyroidism, unspecified; F17.210 Nicotine dependence, cigarettes, uncomplicated; Z59.0 Homelessness